=== PATIENT | male | born 1995 | race Two or more races ===

== ENCOUNTER 2017-06-22 13:06 | Emergency (ER) | payer OTHER, SELFPAY ==
[~2017-06-22] VITALS: Ht 172.7 cm; Wt 59.0 kg
[~2017-06-22 13:06] MED LIST: ACET325 PO; AMLO10 PO; AMLO5 PO; ATOR40TA PO; AZIT250 PO; CEFP200 PO; CHOL10002 PO; CLON.3TP TOP; CYCLOPHOSPHAMID50 MG PO; Calcium Acetat667 MG PO; DILT120 PO; FURO40 PO; HYDACE5 PO; HYDRA25 PO; INS70/30PN SC; INSDET100 SC; INSN100I SC; INSUASPI SC; INSULANPEN SC; K-Dur20 MEQ PO; Keflex500 MG PO; METR500 PO; NEBI10 PO; Novolog Fl100 UNIT/1 SC; ONDA8 PO; OSEL75CA PO; OXYC5 PO; PANT20 PO; POTA10T PO; PRED20 PO; PROM25 PO; Prednisone10 MG PO; Rena-Vite Tabl0.8 MG PO; SENEXON-S TABL1 EACH PO; TORSE20 PO; [UNRECOGNIZED DRUG - OTHER]
[2018-04-23] MEDS ORDERED: Zofran Odt4 MG SL (16:48)
[2018-04-23] MEDS ORDERED: PROM25 PO (16:48)
== END 2017-06-22 13:49 | disposition home or self-care (01) ==
LOC: ER 13:06
DX: R06.00 Dyspnea, unspecified (principal); E10.22 Type 1 diabetes mellitus with diabetic chronic kidney disease; N18.9 Chronic kidney disease, unspecified; Z87.01 Personal history of pneumonia (recurrent); Z99.2 Dependence on renal dialysis
CPT/HCPCS: 99282

== ENCOUNTER → 2017-07-21 | Outpatient (CLI) | payer OTHER, SELFPAY ==
[~2017-07-21] MED LIST changes: +Zofran Odt4 MG SL
[2017-07-21 15:58] LABS: Hematocrit 25.7 % (37.0-53.0); Hemoglobin 8.5 g/dL (13.5-17.5)
== END | disposition home or self-care (01) ==
LOC: LAB 15:51
PROVIDERS: Internal Medicine
DX: N18.6 End stage renal disease (principal)
CPT/HCPCS: 83880; 85014; 85018

== ENCOUNTER 2017-10-22 09:41 | Emergency (ER) | payer OTHER, SELFPAY ==
[~2017-10-22] VITALS: Ht 172.7 cm; Wt 54.4 kg
[~2017-10-22 09:41] MED LIST changes: -Zofran Odt4 MG SL
[2017-10-22 10:59] LABS: BASOPHILS ABSOLUTE AUTO 0.04 K/mm3 (0.00-0.23); BASOPHILS PERCENT AUTO 1 % (0-2); EOSINOPHILS ABSOLUTE AUTO 0.13 K/mm3 (0.00-0.68); EOSINOPHILS PERCENT AUTO 2 % (0-6); Hematocrit 32.3 % (37.0-53.0); Hemoglobin 10.7 g/dL (13.5-17.5); IMMATURE GRAN ABSOLUTE AUTO 0.04 K/mm3 (0.00-0.10); IMMATURE GRAN PERCENT AUTO 1 % (0-1); LYMPHOCYTES ABSOLUTE AUTO 0.78 K/mm3 (0.84-5.20); LYMPHOCYTES PERCENT AUTO 10 % (21-46); MONOCYTES ABSOLUTE AUTO 0.49 K/mm3 (0.16-1.47); MONOCYTES PERCENT AUTO 6 % (4-13); Mean Corpuscular HGB 28.5 pg (26.0-34.0); Mean Corpuscular HGB Conc 33.1 g/dL (31.5-36.5); Mean Corpuscular Volume 86 fL (80-100); Mean Platelet Volume 10.9 fL (9.1-12.4); NEUTROPHILS ABSOLUTE AUTO 6.69 K/mm3 (1.96-9.15); NEUTROPHILS PERCENT AUTO 82 % (41-73); Platelet Count 242 K/mm3 (150-400); RDW Coefficient Variation 14.7 % (11.7-14.2); RDW Standard Deviation 46.6 fL (35.1-46.3); Red Blood Cell Count 3.75 M/mm3 (4.30-5.90); White Blood Cell Count 8.17 K/mm3 (4.00-11.30)
[2017-10-22 11:16] LABS: Albumin, Blood 3.6 g/dL (3.4-5.0); Albumin/Globulin Ratio 0.9 (0.8-1.8); Bilirubin, Total 0.8 mg/dL (0.1-1.0); Bun/Creatinine Ratio 4.5 (12.0-20.0); Calcium, Blood 8.8 mg/dL (8.5-10.1); Creatinine, Blood 5.15 mg/dL (0.60-1.20); Potassium, Blood 3.8 mmol/L (3.5-5.5); Total Protein, Blood 7.6 g/dL (6.4-8.2)
== END 2017-10-22 13:22 | disposition home or self-care (01) ==
LOC: ER 09:41
PROVIDERS: Emergency Medicine
DX: I12.0 Hypertensive chronic kidney disease with stage 5 chronic kidney disease or end stage renal disease (principal); E10.22 Type 1 diabetes mellitus with diabetic chronic kidney disease; N18.6 End stage renal disease; Z99.2 Dependence on renal dialysis; Z79.899 Other long term (current) drug therapy; Z79.4 Long term (current) use of insulin
CPT/HCPCS: 36415; 80053; 82947; 85025; 93005; 93010; J1815

== ENCOUNTER → 2017-11-12 | Outpatient (CLI) | payer OTHER, SELFPAY ==
[2017-11-12 10:08] LABS: BASOPHILS ABSOLUTE AUTO 0.02 K/mm3 (0.00-0.23); BASOPHILS PERCENT AUTO 0 % (0-2); EOSINOPHILS ABSOLUTE AUTO 0.12 K/mm3 (0.00-0.68); EOSINOPHILS PERCENT AUTO 1 % (0-6); Hematocrit 30.1 % (37.0-53.0); Hemoglobin 10.1 g/dL (13.5-17.5); IMMATURE GRAN ABSOLUTE AUTO 0.03 K/mm3 (0.00-0.10); IMMATURE GRAN PERCENT AUTO 0 % (0-1); LYMPHOCYTES ABSOLUTE AUTO 0.52 K/mm3 (0.84-5.20); LYMPHOCYTES PERCENT AUTO 6 % (21-46); MONOCYTES PERCENT AUTO 6 % (4-13); Mean Corpuscular HGB 29.4 pg (26.0-34.0); Mean Corpuscular HGB Conc 33.6 g/dL (31.5-36.5); Mean Corpuscular Volume 88 fL (80-100); Mean Platelet Volume 11.2 fL (9.1-12.4); NEUTROPHILS ABSOLUTE AUTO 7.33 K/mm3 (1.96-9.15); NEUTROPHILS PERCENT AUTO 86 % (41-73); Platelet Count 236 K/mm3 (150-400); RDW Coefficient Variation 15.6 % (11.7-14.2); RDW Standard Deviation 49.7 fL (35.1-46.3); Red Blood Cell Count 3.43 M/mm3 (4.30-5.90); White Blood Cell Count 8.52 K/mm3 (4.00-11.30)
== END | disposition home or self-care (01) ==
LOC: LAB DAV 09:54 → EDSTATUS 12:43
PROVIDERS: Internal Medicine
DX: R50.9 Fever, unspecified (principal); B99.9 Unspecified infectious disease
CPT/HCPCS: 85025

== ENCOUNTER 2019-01-27 00:07 | Observation (INO) | payer OTHER ==
[~2019-01-27] VITALS: Ht 172.7 cm; Wt 51.8 kg
[~2019-01-27 00:07] MED LIST changes: +Zofran Odt4 MG SL
[2019-01-27 01:15] LABS: Chloride (POC) 93 mmol/L (98-108); Creatinine (POC) 12.7 mg/dL (0.8-1.3); Glucose (ISTAT POC) 336 mg/dL (70-99); Hemoglobin (POC) 13.9 g/dL (13.5-17.5); Potassium (POC) 4.5 mmol/L (3.5-5.5); Sodium (POC) 132 mmol/L (135-148); Total CO2 (POC) 26 mmol/L (21-32)
[2019-01-27 01:18] LABS: BASOPHILS ABSOLUTE AUTO 0.02 K/mm3 (0.00-0.23); BASOPHILS PERCENT AUTO 0 % (0-2); EOSINOPHILS ABSOLUTE AUTO 0.01 K/mm3 (0.00-0.68); EOSINOPHILS PERCENT AUTO 0 % (0-6); Hematocrit 36.9 % (37.0-53.0); Hemoglobin 12.4 g/dL (13.5-17.5); IMMATURE GRAN ABSOLUTE AUTO 0.02 K/mm3 (0.00-0.10); IMMATURE GRAN PERCENT AUTO 0 % (0-1); LYMPHOCYTES ABSOLUTE AUTO 0.76 K/mm3 (0.84-5.20); LYMPHOCYTES PERCENT AUTO 7 % (21-46); MONOCYTES ABSOLUTE AUTO 0.75 K/mm3 (0.16-1.47); MONOCYTES PERCENT AUTO 7 % (4-13); Mean Corpuscular HGB 31.6 pg (26.0-34.0); Mean Corpuscular HGB Conc 33.6 g/dL (31.5-36.5); Mean Corpuscular Volume 94 fL (80-100); NEUTROPHILS ABSOLUTE AUTO 9.54 K/mm3 (1.96-9.15); NEUTROPHILS PERCENT AUTO 86 % (41-73); Platelet Count 322 K/mm3 (150-400); RDW Coefficient Variation 14.2 % (11.7-14.2); RDW Standard Deviation 48.6 fL (35.1-46.3); Red Blood Cell Count 3.92 M/mm3 (4.30-5.90)
[2019-01-27] MEDS ORDERED: METO50 PO (01:38)
[2019-01-27] MEDS ORDERED: MINO2.5 PO (01:39)
[2019-01-27] MEDS ORDERED: LOSA50 PO (01:40)
[2019-01-27] MEDS ORDERED: FURO80 PO (01:40)
[2019-01-27] MEDS ORDERED: LORA1 PO (01:42)
[2019-01-27] MEDS ORDERED: Zoloft100 MG PO (01:43)
[2019-01-27 01:45] LABS: Bilirubin, Total 0.7 mg/dL (0.1-1.0); Bun/Creatinine Ratio 4.8 (12.0-20.0); Calcium, Blood 9.8 mg/dL (8.5-10.1); Creatinine, Blood 10.5 mg/dL (0.60-1.20); Globulin, Blood 4.8 g/dL (2.2-4.0); Potassium, Blood 4.6 mmol/L (3.5-5.5); Total Protein, Blood 9.8 g/dL (6.4-8.2)
== END 2019-01-27 04:50 | disposition left against medical advice (07) ==
LOC: ER 00:07 → ERHOLD 00:08
PROVIDERS: Emergency Medicine; ADMIT Hospitalist
DX: I16.0 Hypertensive urgency (principal); E10.65 Type 1 diabetes mellitus with hyperglycemia; I12.0 Hypertensive chronic kidney disease with stage 5 chronic kidney disease or end stage renal disease; E10.22 Type 1 diabetes mellitus with diabetic chronic kidney disease; N18.6 End stage renal disease; E10.21 Type 1 diabetes mellitus with diabetic nephropathy; F32.9 Major depressive disorder, single episode, unspecified; Z99.2 Dependence on renal dialysis; Z79.899 Other long term (current) drug therapy
CPT/HCPCS: 80047; 80053; 82947; 83690; 85014; 85025; 96361; 96374; 96375; 99285-25; C9113; G0378; J1630; J1644; J1815; J7030

== ENCOUNTER 2020-03-12 00:23 | Day surgery (SDC) | payer OTHER ==
[~2020-03-12 00:23] MED LIST changes: +Catapres0.2 MG PO; +FURO80 PO; +LORA1 PO; +LOSA50 PO; +METO50 PO; +MINO2.5 PO; +SERT100 PO; +Zoloft100 MG PO
--- NOTE | 2020-03-12 15:53 | NUR ---
PT JUST RETURNED FROM [facility]. SISTER HERE AND BROUGHT IN PTS INSULIN, SELF INJECTS. PT REPORTS HIS BLOOD SUGAR WAS [phone].
== END 2020-03-12 16:15 | disposition home or self-care (01) ==
LOC: ATC 00:23
DX: N18.6 End stage renal disease (principal); D63.1 Anemia in chronic kidney disease; Z99.2 Dependence on renal dialysis
CPT/HCPCS: 36415; 36430; 86850; 86900; 86901; 86923; J7050; P9016

== ENCOUNTER 2020-06-03 09:16 | Emergency (ER) | payer OTHER ==
[~2020-06-03] VITALS: Ht 172.7 cm; Wt 57.0 kg
[2020-06-03] MEDS ORDERED: OXYC5 PO (10:18)
[2020-06-03] MEDS ORDERED: LIDO700A20 TOP (10:18)
== END 2020-06-03 10:24 | disposition home or self-care (01) ==
LOC: ER 09:16
DX: M25.511 Pain in right shoulder (principal); Z79.899 Other long term (current) drug therapy; Z79.4 Long term (current) use of insulin
CPT/HCPCS: 73030; 99283-25

== ENCOUNTER 2020-08-25 07:40 | Observation (INO) | payer OTHER ==
[~2020-08-25] VITALS: Ht 172.7 cm; Wt 53.1 kg
[~2020-08-25 07:40] MED LIST changes: +LEVEMIR100 UNIT/1 SC; +LIDO700A20 TOP
[2020-08-25 09:16] LABS: Influenza A, PCR NEGATIVE (NEGATIVE); Influenza B, PCR NEGATIVE (NEGATIVE); Resp Syncytial Virus, PCR NEGATIVE (NEGATIVE); SARS-Cov-2 (COVID-19) PCR, MMC NEGATIVE (NEGATIVE)
[2020-08-25 09:21] LABS: Hematocrit 28.7 % (37.0-53.0); Hemoglobin 9.6 g/dL (13.5-17.5); Mean Corpuscular HGB 30.6 pg (26.0-34.0); Mean Corpuscular HGB Conc 33.4 g/dL (31.5-36.5); Mean Corpuscular Volume 91 fL (80-100); Mean Platelet Volume 9.9 fL (9.1-12.4); Platelet Count 214 K/mm3 (150-400); RDW Coefficient Variation 13.9 % (11.7-14.2); RDW Standard Deviation 46.7 fL (35.1-46.3); Red Blood Cell Count 3.14 M/mm3 (4.30-5.90); White Blood Cell Count 4.34 K/mm3 (4.00-11.30)
[2020-08-25 09:30] LABS: International Normalized Ratio 1.05; Prothrombin Time Results 11.2 Sec (9.7-11.5)
[2020-08-25 10:00] LABS: Bun/Creatinine Ratio 4.3 (12.0-20.0); Calcium, Blood 7.9 mg/dL (8.5-10.1); Creatinine, Blood 10.9 mg/dL (0.60-1.20); Potassium, Blood 4.4 mmol/L (3.5-5.5)
[2020-08-25] MEDS ORDERED: ATOR10 PO (11:48)
[2020-08-25] MEDS ORDERED: Ativan1 MG PO (11:49)
[2020-08-25] MEDS ORDERED: PANTOPRAZOLE SO40 M2 PO (11:49)
[2020-08-25] MEDS ORDERED: CLON.2 PO (11:49)
[2020-08-25] MEDS ORDERED: FOLI1 PO (11:50)
--- NOTE | 2020-08-25 17:21 | NUR ---
1706- CALL RECEIVED FROM IMAGING THAT PT'S CATHETER IS IN THE RT [employer]. XIN STS THAT DR. DRISCOLL RECOMMENDS PULLING BACK [address] CHISHOLM MADE, SHE STS SHE WILL LOOK AT IMAGE AND CALL BACK. DR. CHISHOLM RETURNS CALL AND STS THAT THE CATHETER IS IN THE RT PLACE. SHE STS THAT THE CATHETER FLOWS WELL AND SHE IS OKAY WITH PT DISCHARGING IN THE PLACE IT IS AT.
--- NOTE | 2020-08-25 17:26 | NUR ---
DR. LUO CALLED AND NOTIFIED OF CHEM BG OF 369. PLAN FOR ADDITIONAL 4 UNITS OF HUMALOG. pT TO [facility] HOME IN CARE OF MOTHER WHO WILL MONITOR.
== END 2020-08-25 17:26 | disposition home or self-care (01) ==
LOC: ER 07:40 → MEDS 07:41
PROVIDERS: Emergency Medicine; Surgery; ADMIT Family Medicine
DX: T82.43XA Leakage of vascular dialysis catheter, initial encounter (principal); E10.22 Type 1 diabetes mellitus with diabetic chronic kidney disease; I12.0 Hypertensive chronic kidney disease with stage 5 chronic kidney disease or end stage renal disease; N18.6 End stage renal disease; N02.8 Recurrent and persistent hematuria with other morphologic changes; F12.90 Cannabis use, unspecified, uncomplicated; E78.5 Hyperlipidemia, unspecified; K21.9 Gastro-esophageal reflux disease without esophagitis; D64.9 Anemia, unspecified; F32.9 Major depressive disorder, single episode, unspecified; F41.9 Anxiety disorder, unspecified; Y71.1 Therapeutic (nonsurgical) and rehabilitative cardiovascular devices associated with adverse incidents; Z79.4 Long term (current) use of insulin; Z99.2 Dependence on renal dialysis; Z20.822 Contact with and (suspected) exposure to COVID-19; Z87.891 Personal history of nicotine dependence
CPT/HCPCS: 0241U; 36415; 77001; 80048; 82947; 85027; 85610; 99284-25; C1750; J0690; J1644; J2250; J2405; J2704; J3010; J7120

== ENCOUNTER 2020-12-04 22:29 | Emergency (ER) | payer OTHER ==
[~2020-12-04] VITALS: Ht 172.7 cm; Wt 56.0 kg
[~2020-12-04 22:29] MED LIST changes: +ATOR10 PO; +Ativan1 MG PO; +CLON.2 PO; +FOLI1 PO; +PANTOPRAZOLE SO40 M2 PO
[2020-12-04 23:05] LABS: BASOPHILS ABSOLUTE AUTO 0.03 K/mm3 (0.00-0.23); BASOPHILS PERCENT AUTO 0 % (0-2); EOSINOPHILS ABSOLUTE AUTO 0.13 K/mm3 (0.00-0.68); EOSINOPHILS PERCENT AUTO 2 % (0-6); Hematocrit 41.4 % (37.0-53.0); Hemoglobin 13.9 g/dL (13.5-17.5); IMMATURE GRAN ABSOLUTE AUTO 0.02 K/mm3 (0.00-0.10); IMMATURE GRAN PERCENT AUTO 0 % (0-1); LYMPHOCYTES ABSOLUTE AUTO 0.48 K/mm3 (0.84-5.20); LYMPHOCYTES PERCENT AUTO 6 % (21-46); MONOCYTES ABSOLUTE AUTO 0.34 K/mm3 (0.16-1.47); MONOCYTES PERCENT AUTO 4 % (4-13); Mean Corpuscular HGB 31.5 pg (26.0-34.0); Mean Corpuscular HGB Conc 33.6 g/dL (31.5-36.5); Mean Corpuscular Volume 94 fL (80-100); NEUTROPHILS PERCENT AUTO 87 % (41-73); Platelet Count 267 K/mm3 (150-400); RDW Standard Deviation 44.9 fL (35.1-46.3); Red Blood Cell Count 4.41 M/mm3 (4.30-5.90)
[2020-12-04 23:37] LABS: Albumin, Blood 4.6 g/dL (3.4-5.0); Albumin/Globulin Ratio 0.9 (0.8-1.8); Bilirubin, Total 0.4 mg/dL (0.1-1.0); Bun/Creatinine Ratio 3.1 (12.0-20.0); Calcium, Blood 9.2 mg/dL (8.5-10.1); Creatinine, Blood 10.5 mg/dL (0.60-1.20); Potassium, Blood 5.6 mmol/L (3.5-5.5); Total Protein, Blood 9.6 g/dL (6.4-8.2)
[2020-12-05 00:41] LABS: Beta-hydroxybutyrate 13.3 mg/dL (0.2-2.8); Magnesium, Blood 2.4 mg/dL (1.6-2.4)
[2020-12-05] MEDS ORDERED: FURO80 PO (01:11)
[2020-12-05] MEDS ORDERED: HUMALOG KW100 UNIT/1 SQ (01:12)
[2020-12-05] MEDS ORDERED: HYDRA50 PO (01:13)
[2020-12-05] MEDS ORDERED: Norco 5-325 Ta1 EACH PO (01:14)
[2020-12-05] MEDS ORDERED: PROM25 PO (02:33)
== END 2020-12-05 02:46 | disposition home or self-care (01) ==
LOC: ER 22:29
PROVIDERS: Physician Assistant
DX: I16.0 Hypertensive urgency (principal); I12.0 Hypertensive chronic kidney disease with stage 5 chronic kidney disease or end stage renal disease; E86.0 Dehydration; R11.2 Nausea with vomiting, unspecified; N18.6 End stage renal disease; E10.22 Type 1 diabetes mellitus with diabetic chronic kidney disease; F17.200 Nicotine dependence, unspecified, uncomplicated; Z79.899 Other long term (current) drug therapy; Z79.4 Long term (current) use of insulin; Z99.2 Dependence on renal dialysis
CPT/HCPCS: 36415; 80053; 82010; 83605; 83690; 83735; 83880; 85025; 96374; 96375; 96376; 99284-25; A9270; J2405; J2550; J7120

== ENCOUNTER 2023-03-13 13:57 | Emergency (ER) | payer OTHER ==
[~2023-03-13] VITALS: Ht 172.7 cm; Wt 55.0 kg
[~2023-03-13 13:57] MED LIST changes: +HUMALOG KW100 UNIT/1 SQ; +HYDRA50 PO; +Norco 5-325 Ta1 EACH PO
[2023-03-13 14:50] LABS: BASOPHILS ABSOLUTE AUTO 0.04 K/mm3 (0.00-0.23); BASOPHILS PERCENT AUTO 0 % (0-2); EOSINOPHILS ABSOLUTE AUTO 0.18 K/mm3 (0.00-0.68); EOSINOPHILS PERCENT AUTO 2 % (0-6); Hematocrit 29.9 % (37.0-53.0); Hemoglobin 9.6 g/dL (13.5-17.5); IMMATURE GRAN ABSOLUTE AUTO 0.08 K/mm3 (0.00-0.10); IMMATURE GRAN PERCENT AUTO 1 % (0-1); LYMPHOCYTES PERCENT AUTO 5 % (21-46); MONOCYTES PERCENT AUTO 9 % (4-13); Mean Corpuscular HGB 26.1 pg (26.0-34.0); Mean Corpuscular HGB Conc 32.1 g/dL (31.5-36.5); Mean Corpuscular Volume 81 fL (80-100); Mean Platelet Volume 10.1 fL (9.1-12.4); NEUTROPHILS ABSOLUTE AUTO 7.66 K/mm3 (1.96-9.15); NEUTROPHILS PERCENT AUTO 83 % (41-73); Platelet Count 291 K/mm3 (150-400); RDW Coefficient Variation 16.9 % (11.7-14.2); RDW Standard Deviation 49.3 fL (35.1-46.3); Red Blood Cell Count 3.68 M/mm3 (4.30-5.90); White Blood Cell Count 9.26 K/mm3 (4.00-11.30)
[2023-03-13 15:24] LABS: Albumin, Blood 3.3 g/dL (3.4-5.0); Albumin/Globulin Ratio 0.6 (0.8-1.8); Bilirubin, Total 0.5 mg/dL (0.1-1.0); Bun/Creatinine Ratio 4.7 (12.0-20.0); Creatinine, Blood 9.09 mg/dL (0.60-1.20); Globulin, Blood 5.5 g/dL (2.2-4.0); Total Protein, Blood 8.8 g/dL (6.4-8.2)
[2023-03-13 16:11] VITALS: BP 163/96
[2023-03-13] MEDS ORDERED: ONDA4ODT MM (17:44)
== END 2023-03-13 18:03 | disposition home or self-care (01) ==
LOC: ER 13:57
PROVIDERS: Emergency Medicine
DX: R11.2 Nausea with vomiting, unspecified (principal); I12.0 Hypertensive chronic kidney disease with stage 5 chronic kidney disease or end stage renal disease; E10.22 Type 1 diabetes mellitus with diabetic chronic kidney disease; N18.6 End stage renal disease; F17.200 Nicotine dependence, unspecified, uncomplicated; Z91.048 Other nonmedicinal substance allergy status; Z99.2 Dependence on renal dialysis; Z79.4 Long term (current) use of insulin; Z79.899 Other long term (current) drug therapy
CPT/HCPCS: 80053; 83690; 85025; 96374; 96376; 99284-25; J2405; J7030

== ENCOUNTER 2023-06-25 09:56 | Emergency (ER) | payer OTHER ==
[~2023-06-25] VITALS: Ht 172.7 cm; Wt 54.4 kg
[~2023-06-25 09:56] MED LIST changes: +ONDA4ODT MM
[2023-06-25 10:58] VITALS: BP 142/102
[2023-06-25 11:24] LABS: BASOPHILS ABSOLUTE AUTO 0.02 K/mm3 (0.00-0.23); BASOPHILS PERCENT AUTO 0 % (0-2); EOSINOPHILS ABSOLUTE AUTO 0.07 K/mm3 (0.00-0.68); EOSINOPHILS PERCENT AUTO 1 % (0-6); Hematocrit 38.7 % (37.0-53.0); Hemoglobin 13.1 g/dL (13.5-17.5); IMMATURE GRAN ABSOLUTE AUTO 0.02 K/mm3 (0.00-0.10); IMMATURE GRAN PERCENT AUTO 0 % (0-1); LYMPHOCYTES ABSOLUTE AUTO 0.63 K/mm3 (0.84-5.20); LYMPHOCYTES PERCENT AUTO 11 % (21-46); MONOCYTES ABSOLUTE AUTO 0.49 K/mm3 (0.16-1.47); MONOCYTES PERCENT AUTO 9 % (4-13); Mean Corpuscular HGB 27.8 pg (26.0-34.0); Mean Corpuscular HGB Conc 33.9 g/dL (31.5-36.5); Mean Corpuscular Volume 82 fL (80-100); Mean Platelet Volume 9.2 fL (9.1-12.4); NEUTROPHILS ABSOLUTE AUTO 4.48 K/mm3 (1.96-9.15); NEUTROPHILS PERCENT AUTO 78 % (41-73); Platelet Count 188 K/mm3 (150-400); RDW Standard Deviation 51.6 fL (35.1-46.3); Red Blood Cell Count 4.71 M/mm3 (4.30-5.90); White Blood Cell Count 5.71 K/mm3 (4.00-11.30)
[2023-06-25 11:51] LABS: Albumin, Blood 3.8 g/dL (3.4-5.0); Albumin/Globulin Ratio 0.7 (0.8-1.8); Bilirubin, Total 0.5 mg/dL (0.1-1.0); Bun/Creatinine Ratio 3.2 (12.0-20.0); Calcium, Blood 9.3 mg/dL (8.5-10.1); Creatinine, Blood 5.29 mg/dL (0.60-1.20); Globulin, Blood 5.3 g/dL (2.2-4.0); Potassium, Blood 4.2 mmol/L (3.5-5.5); Total Protein, Blood 9.1 g/dL (6.4-8.2)
== END 2023-06-25 13:26 | disposition left against medical advice (07) ==
LOC: ER 09:56
PROVIDERS: Emergency Medicine
DX: Z53.21 Procedure and treatment not carried out due to patient leaving prior to being seen by health care provider (principal)
CPT/HCPCS: 80053; 83690; 85025; J2405

== ENCOUNTER 2023-11-24 10:44 | Day surgery (SDC) | payer OTHER ==
[~2023-11-24] VITALS: Ht 172.7 cm; Wt 57.7 kg
[~2023-11-24 10:44] MED LIST changes: +VELPHORO PO
[2023-11-24 11:15] VITALS: BP 120/70
[2023-11-24] MEDS ORDERED: NS 250 ML IV ONE (11:26)
[2023-11-24] MEDS ORDERED: Heparin Sodium 1000 Units/ML 10ML MDV ONE (11:26)
[2023-11-24] MEDS ORDERED: FentaNYL Citrate 50 MCG/ML 2 ML Injection ONE ×3 (12:05→12:53)
[2023-11-24] MEDS ORDERED: NS 500 ML IV ONE (12:05)
[2023-11-24] MEDS ORDERED: Midazolam HCl 1MG / ML 2ML Vial ONE ×2 (12:05→12:31)
[2023-11-24] MEDS ORDERED: CeFAZolin Sodium 1000 mg Vial ONE (12:37)
[2023-11-24] MEDS ORDERED: Heparin Sodium 5000 Units/ML 1ML MDV ONE ×3 (12:58→12:59)
[2023-11-24 13:18] VITALS: BP 113/72
--- NOTE | 2023-11-24 13:25 | NUR ---
PT RETURNS TO RECOVERY ROOM. AWAKENS TO VERBAL STIMULI BUT IS DROWSY. PT MOTHER TO BEDSIDE, SITE REMAIN WNL, DRESSINGS INTACT. VSS.
[2023-11-24 13:30] VITALS: BP 104/58
[2023-11-24 13:45] VITALS: BP 103/68
[2023-11-24 14:00] VITALS: BP 103/60
--- NOTE | 2023-11-24 14:00 | NUR ---
PT DISCHARGED HOME, ALL BELONINGS WITH PT. PT MOTHER AT BEDSIDE FOR DISCHARGE. NO NEW MEDICATIONS AT THIS TIME. SITE WNL, SMALL AMT OF DRAINAGE TO DRESSING HOWEVER NO CHANGES SINCE ARRIVAL TO RECOVERY ROOM. DISCHARGE INST. REVIEWED WITH PT AND MOTHER. IV REMOVED CATHTER INTACT. PT. VSS UPON DISCHARGE. PT TO BE DRIVEN HOME BY MOM.
== END 2023-11-24 15:15 | disposition home or self-care (01) ==
LOC: MHTC 10:44
DX: T82.9XXA Unspecified complication of cardiac and vascular prosthetic device, implant and graft, initial encounter (principal); E10.22 Type 1 diabetes mellitus with diabetic chronic kidney disease; N18.6 End stage renal disease; E78.5 Hyperlipidemia, unspecified; Z79.899 Other long term (current) drug therapy
CPT/HCPCS: 36251-LT; 36581; 75625; 75716; 99152; 99153; C1750; C1769; J0690; J1644; J2250; J3010; J7040; J7050

== ENCOUNTER 2023-11-24 15:39 | Emergency (ER) | payer OTHER ==
[~2023-11-24] VITALS: Ht 170.2 cm; Wt 55.0 kg
[2023-11-24 16:12] VITALS: BP 143/96
[2023-11-24] MEDS ORDERED: HYDROcodone 5-APAP 325 TAB PO ONE (16:20)
[2023-11-24] MEDS ORDERED: FentaNYL Citrate 50 MCG/ML 2 ML Injection IV ONE (17:10)
[2023-11-24] MEDS ORDERED: Midazolam HCl 1MG / ML 2ML Vial IV ONE (17:10)
== END 2023-11-24 18:30 | disposition home or self-care (01) ==
LOC: ER 15:39
DX: L76.22 Postprocedural hemorrhage of skin and subcutaneous tissue following other procedure (principal); E10.22 Type 1 diabetes mellitus with diabetic chronic kidney disease; I12.0 Hypertensive chronic kidney disease with stage 5 chronic kidney disease or end stage renal disease; N18.6 End stage renal disease; F17.200 Nicotine dependence, unspecified, uncomplicated; Y73.3 Surgical instruments, materials and gastroenterology and urology devices (including sutures) associated with adverse incidents; Z99.2 Dependence on renal dialysis; Z79.899 Other long term (current) drug therapy; Z79.4 Long term (current) use of insulin
CPT/HCPCS: 82947; 96374; 96375; 99283-25; A9270; J2250; J3010

== ENCOUNTER 2024-03-29 02:02 | Emergency (ER) | payer OTHER ==
[~2024-03-29] VITALS: Ht 172.7 cm; Wt 60.0 kg
[2024-03-29] MEDS ORDERED: FentaNYL Citrate 50 MCG/ML 2 ML Injection IV ONE (04:15)
[2024-03-29] MEDS ORDERED: Dextrose 50% 50 ML Vial ONE (04:58)
[2024-03-29] MEDS ORDERED: OxyCODONE 5 mg/Acetamin 325 mg TABLET PO ONE (05:50)
[2024-03-29] MEDS ORDERED: Ketorolac Tromethamine 30mg Vial IV ONE (05:50)
[2024-03-29 06:16] LABS: BASOPHILS ABSOLUTE AUTO 0.02 K/mm3 (0.00-0.23); BASOPHILS PERCENT AUTO 0 % (0-2); EOSINOPHILS ABSOLUTE AUTO 0.16 K/mm3 (0.00-0.68); EOSINOPHILS PERCENT AUTO 2 % (0-6); Hematocrit 36.6 % (37.0-53.0); Hemoglobin 12.1 g/dL (13.5-17.5); IMMATURE GRAN ABSOLUTE AUTO 0.01 K/mm3 (0.00-0.10); IMMATURE GRAN PERCENT AUTO 0 % (0-1); LYMPHOCYTES ABSOLUTE AUTO 0.75 K/mm3 (0.84-5.20); LYMPHOCYTES PERCENT AUTO 11 % (21-46); MONOCYTES ABSOLUTE AUTO 0.76 K/mm3 (0.16-1.47); MONOCYTES PERCENT AUTO 11 % (4-13); Mean Corpuscular HGB 27.4 pg (26.0-34.0); Mean Corpuscular HGB Conc 33.1 g/dL (31.5-36.5); Mean Corpuscular Volume 83 fL (80-100); Mean Platelet Volume 9.9 fL (9.1-12.4); NEUTROPHILS ABSOLUTE AUTO 5.25 K/mm3 (1.96-9.15); NEUTROPHILS PERCENT AUTO 76 % (41-73); Platelet Count 164 K/mm3 (150-400); RDW Coefficient Variation 17.9 % (11.7-14.2); Red Blood Cell Count 4.42 M/mm3 (4.30-5.90); White Blood Cell Count 6.95 K/mm3 (4.00-11.30)
[2024-03-29 07:13] LABS: Albumin, Blood 3.3 g/dL (3.4-5.0); Albumin/Globulin Ratio 0.7 (0.8-1.8); Bilirubin, Total 0.4 mg/dL (0.1-1.0); Bun/Creatinine Ratio 5.5 (12.0-20.0); Calcium, Blood 8.6 mg/dL (8.5-10.1); Creatinine, Blood 15.4 mg/dL (0.60-1.20); Globulin, Blood 4.5 g/dL (2.2-4.0); Potassium, Blood 5.1 mmol/L (3.5-5.5); Total Protein, Blood 7.8 g/dL (6.4-8.2)
[2024-03-29 09:21] VITALS: BP 156/92
[2024-03-29] MEDS ORDERED: OxyCODONE HCL 5 MG TAB PO ONE (09:25)
[2024-03-29] MEDS ORDERED: OXYC5 PO (09:29)
== END 2024-03-29 10:00 | disposition home or self-care (01) ==
LOC: ER 02:02
PROVIDERS: Emergency Medicine
DX: M25.551 Pain in right hip (principal); E10.9 Type 1 diabetes mellitus without complications; Z79.4 Long term (current) use of insulin; Z79.899 Other long term (current) drug therapy
CPT/HCPCS: 73502; 73552; 73701; 80053; 82947; 85025; 85651; 96374-59; 96375-59; 99284-25; A9270; J1885; J3010; J7799; Q9967